=== PATIENT | male | born 1975 ===

== ENCOUNTER 2023-08-17 03:03 | Emergency (ER) | payer OTHER ==
[2023-08-17] VITALS (10 sets, daily range): BP systolic 108–125; BP diastolic 69–89
[~2023-08-17] VITALS: Ht 157.5 cm; Wt 100.0 kg
[2023-08-17] MEDS ORDERED: ORPHENADRINE100 MG PO (05:06)
== END 2023-08-17 05:23 | disposition home or self-care (01) | DRG 563 ==
LOC: ED 03:03
DX: S93.402A Sprain of unspecified ligament of left ankle, initial encounter (principal); C95.90 Leukemia, unspecified not having achieved remission; I10 Essential (primary) hypertension; I25.2 Old myocardial infarction; W17.2XXA Fall into hole, initial encounter; Y93.89 Activity, other specified; Y92.89 Other specified places as the place of occurrence of the external cause